=== PATIENT | female | born 1955 | race African-American/Black ===

== ENCOUNTER 2019-09-06 20:17 | Emergency (ER) | payer MEDICARE, BC ==
[~2019-09-06] VITALS: Ht 165.1 cm; Wt 59.0 kg
[2019-09-06] MEDS ORDERED: ACETAMINOPHEN ES 500 MG TABLET PO ONE (21:15)
[2019-09-06] MEDS ORDERED: IV NORMAL SALINE 1000 ML BAG IV ONE (21:15)
[2019-09-06] MEDS ORDERED: ACETAMINOPHEN ES 500 MG TABLET ONE (21:16)
--- NOTE | 2019-09-06 21:19 | NUR ---
PT REQUESTED PAIN MEDS BE PLACED ON HOLD FOR NOW BROUGHT DOWN TO CT ACC BY [employer] VIA GURNEY
[2019-09-06 21:23] LABS: BASOPHILS % (AUTO) 0.6 % (0.0-2.0); EOSINOPHILS % (AUTO) 0.5 % (0.0-7.0); HEMATOCRIT 39.8 % (31.2-41.9); HEMOGLOBIN 13.3 g/dL (10.9-14.3); LYMPHOCYTES # (AUTO) 1.3 K/uL (20.0-40.0); LYMPHOCYTES % (AUTO) 29.7 % (20.5-51.5); MEAN CORPUSCULAR HEMOGLOBIN 29.1 uug (24.7-32.8); MEAN CORPUSCULAR HGB CONC 33 g/dL (32.3-35.6); MEAN CORPUSCULAR VOLUME 87.5 fL (75.5-95.3); MONOCYTES # (AUTO) 0.3 K/uL (2.0-10.0); MONOCYTES % (AUTO) 6.3 % (0.0-11.0); NEUTROPHILS # (AUTO) 2.8 K/uL (1.8-8.9); NEUTROPHILS % (AUTO) 62.9 % (38.5-71.5); PLATELET COUNT (AUTO) 154 K/uL (179-408); RED BLOOD CELL COUNT(AUTO) 4.55 MIL/uL (3.63-4.92); WHITE BLOOD COUNT (AUTO) 4.5 K/uL (3.8-11.8)
[2019-09-06 21:36] LABS: BILIRUBIN,DIRECT 0.1 mg/dL (0.0-0.2); BILIRUBIN,TOTAL 0.3 mg/dL (0.2-1.0); CREATININE 0.8 mg/dL (0.6-1.3); TOTAL PROTEIN, SERUM 7.4 g/dL (6.4-8.2)
--- NOTE | 2019-09-06 22:25 | NUR ---
IV DC , DRESSED
--- NOTE | 2019-09-06 22:28 | NUR ---
Patient discharged to home in stable conditon. Written and verbal after care instructions given. Patient verbalizes understanding of instructions. AMBULATORY W/ STABLE GAIT ALL BELONGINGS W/ PT
[2019-09-06 22:32] VITALS: BP 135/78
== END 2019-09-06 22:32 | disposition home or self-care (01) ==
LOC: ER 20:18
DX: R55 Syncope and collapse (principal)
CPT/HCPCS: 36415; 70030-TC; 70450; 71045; 85025; 85730; 86850; 86900; 86901; 93005; A4663; A9150; J7030